=== PATIENT | female | born 1990 | race Hispanic/Latino ===

== ENCOUNTER 2021-02-12 04:18 | Emergency (ER) | payer SELFPAY ==
[2021-02-12] MEDS ORDERED: LORazepam 2 MG/ML VIAL ONE (04:56)
[2021-02-12] MEDS ORDERED: NA CHLORIDE 0.9% 1,000 ML ONE ×2 (04:57→06:57)
[2021-02-12 04:58] LABS: Absolute Lymphocytes (CBC) 3.6 K/uL (0.7-4.9); Basophils % 0.3 % (0-1.3); Hematocrit 37.9 % (36.0-45.0); Lymphocytes % 28.6 % (15.3-44.8); MPV 12.1 fL (7.6-11.3); RBC Red Blood Cell Count 4.12 M/uL (3.86-4.86)
[2021-02-12 05:01] LABS: Protime INR 1.07
[2021-02-12 05:02] LABS: Urine Blood Negative (Negative); Urine Glucose Negative (Negative); Urine Protein Negative (Negative)
[2021-02-12 05:11] LABS: Barbiturates NEGATIVE (NEGATIVE); Benzodiazepines NEGATIVE (NEGATIVE); Cocaine NEGATIVE (NEGATIVE); METHAMPHETAM NEGATIVE (NEGATIVE); Methadone NEGATIVE (NEGATIVE); Opiates NEGATIVE (NEGATIVE); Phencyclidine NEGATIVE (NEGATIVE); THC Cannibis POSITIVE (NEGATIVE)
[2021-02-12 05:16] LABS: ALT/SGPT 36 U/L (12-78); AST/SGOT 13 U/L (15-37); Albumin 3.6 g/dL (3.4-5.0); Alkaline Phosphatase 61 U/L (45-117); BUN Blood Urea Nitrogen 14 mg/dL (7-18); Bicarbonate 23 mmol/L (21-32); Bilirubin Direct < 0.1 mg/dL (0-0.2); Bilirubin Total 0.3 mg/dL (0.2-1.0); Glucose Level 157 mg/dL (74-106); Magnesium 1.7 mg/dL (1.8-2.4); NT PRO-BNP 9 pg/mL (<125); Potassium 3.2 mmol/L (3.5-5.1); Protein, Total 7.1 g/dL (6.4-8.2); Sodium Level 138 mmol/L (136-145); Troponin (Emerg Dept Use Only) < 0.02 ng/mL (0.0-0.045)
[2021-02-12 05:57] LABS: Thyroid Stimulating Hormone 2.24 uIU/mL (0.360-3.740)
[2021-02-12] MEDS ORDERED: POTASSIUM CL SA 10 MEQ TAB PO ONE (06:57)
--- NOTE | 2021-02-12 08:54 | EDPHYS ---
Physician Documentation [facility] Name: Margarita Maciel Age: 30 yrs Sex: Female : 1990 Arrival Date: 02/12/2021 Time: 04:24 Bed 28 Private MD: ED Physician Marcell Ngo HPI: 02/12 04:10 This 30 yrs old Female presents to ER via Unassigned with complaints of Fast Heart Beat.mh7 04:10 The patient presents with a history of heart racing. Context: The symptoms occur at mh7 rest. Onset: The symptoms/episode began/occurred just prior to arrival, today. Duration: The patient or guardian reports a single episode, that is still ongoing, but improving. Modifying factors: The symptoms are aggravated by substance abuse Alcohol, marijuana. The symptoms are alleviated by nothing. Associated signs and symptoms: Pertinent positives: chest pain, Pertinent negatives: anxiety, cough, fever, lightheadedness, nausea, SOB, syncope, near-syncope, unusual stressors, vertigo, vomiting. Severity of symptoms: At their worst the symptoms were moderate today, in the emergency department the symptoms have improved moderately. Patient admits to drinking 5 beers and smoking marijuana.. 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 - Social history:: Smoking status: Patient denies any tobacco usage or history of. Patient uses street drugs, marijuana. ROS: 04:10 Constitutional: Negative for fever, chills, and weight loss, Eyes: Negative for injury, mh7 pain, redness, and discharge, ENT: Negative for injury, pain, and discharge, Neck: Negative for injury, pain, and swelling, Respiratory: Negative for shortness of breath, cough, wheezing, and pleuritic chest pain, Abdomen/GI: Negative for abdominal pain, nausea, vomiting, diarrhea, and constipation, Back: Negative for injury and pain, : Negative for injury, bleeding, discharge, and swelling, MS/Extremity: Negative for injury and deformity, Skin: Negative for injury, rash, and discoloration, Neuro: Negative for headache, weakness, numbness, tingling, and seizure, Psych: Negative for depression, anxiety, suicide ideation, homicidal ideation, and hallucinations, Allergy/Immunology: Negative for hives, rash, and allergies, Endocrine: Negative for neck swelling, polydipsia, polyuria, polyphagia, and marked weight changes, Hematologic/Lymphatic: Negative for swollen nodes, abnormal bleeding, and unusual bruising. Exam: 04:10 Constitutional: This is a well developed, well nourished patient who is awake, alert, mh7 and in no acute distress. Head/Face: Normocephalic, atraumatic. Eyes: Pupils equal round and reactive to light, extra-ocular motions intact. Lids and lashes normal. Conjunctiva and sclera are non-icteric and not injected. Cornea within normal limits. Periorbital areas with no swelling, redness, or edema. Neck: Trachea midline, no thyromegaly or masses palpated, and no cervical lymphadenopathy. Supple, full range of motion without nuchal rigidity, or vertebral point tenderness. No Meningismus. Chest/axilla: Normal chest wall appearance and motion. Nontender with no deformity. No lesions are appreciated. 04:10 Respiratory: Lungs have equal breath sounds bilaterally, clear to auscultation and percussion. No rales, rhonchi or wheezes noted. No increased work of breathing, no retractions or nasal flaring. Abdomen/GI: Soft, non-tender, with normal bowel sounds. No distension or tympany. No guarding or rebound. No evidence of tenderness throughout. Back: No spinal tenderness. No costovertebral tenderness. Full range of motion. Skin: Warm, dry with normal turgor. Normal color with no rashes, no lesions, and no evidence of cellulitis. MS/ Extremity: Pulses equal, no cyanosis. Neurovascular intact. Full, normal range of motion. Neuro: Awake and alert, GCS 15, oriented to person, place, time, and situation. Cranial nerves II-XII grossly intact. Motor strength 5/5 in all extremities. Sensory grossly intact. Cerebellar exam normal. Normal gait. Psych: Awake, alert, with orientation to person, place and time. Behavior, mood, and affect are within normal limits. 04:10 Cardiovascular: Rate: tachycardic, Rhythm: regular, Pulses: no pulse deficits are appreciated, Heart sounds: normal, normal S1and S2, Edema: is not appreciated, JVD: is not appreciated. 04:30 ECG was reviewed by the Attending Physician. cp Vital Signs: 04:30 BP 124 / 65; Pulse 138; Resp 20; Pulse Ox 100% on R/A; Weight 90.72 kg (R); lp1 05:00 BP 115 / 65; Pulse 124; Resp 20; Pulse Ox 98% on R/A; lp1 06:00 BP 103 / 63; Pulse 115; Resp 19; Pulse Ox 100% on R/A; lp1 06:37 Temp 99.1(O); eb 08:28 Pulse 109; Resp 18; Pulse Ox 100% on R/A; iw 08:55 BP 132 / 80; Pulse 100; Resp 18; Pulse Ox 98% on R/A; Pain 2/10; em1 MDM: 05:00 Differential diagnosis: bronchitis, pneumonia UTI, gastroenteritis, cardiac arrythmia, cp illegal drug use, alcohol intoxication. 08:53 Test interpretation: by ED physician or midlevel provider: ECG, plain radiologic cp studies. 08:54 Patient medically screened. 08:54 Data reviewed: vital signs, nurses notes, lab test result(s), EKG, radiologic studies, cp CT scan, plain films, and as a result, I will discharge patient. 08:54 Counseling: I had a detailed discussion with the patient and/or guardian regarding: the cp historical points, exam findings, and any diagnostic results supporting the discharge/admit diagnosis, lab results, radiology results, to return to the emergency department if symptoms worsen or persist or if there are any questions or concerns that arise at home. 08:54 Response to treatment: the patient's symptoms have markedly improved after treatment, cp and as a result, I will discharge patient. Special discussion: Based on the patient's history, exam, and Dx evaluation, there is no indication for emergent intervention or inpatient Tx. It is understood by the patient/guardian that if the Sx's persist or worsen they need to return immediately for re-evaluation. 02/12 04:29 Order name: Basic Metabolic Panel [facility] 02/12 04:29 Order name: CBC with Diff [facility] 02/12 04:29 Order name: LFT's [facility] 02/12 04:29 Order name: Magnesium [facility] 02/12 04:29 Order name: NT PRO-BNP [facility] 02/12 04:29 Order name: PT-INR [facility] 02/12 04:29 Order name: Troponin (emerg Dept Use Only); Complete Time: 05:23 [facility] 02/12 04:29 Order name: UDS; Complete Time: 05:12 [facility] 02/12 04:29 Order name: ETOH Level; Complete Time: 05:16 [facility] 02/12 04:30 Order name: Basic Metabolic Panel; Complete Time: 05:23 EDMS 02/12 04:30 Order name: CBC with Automated Diff; Complete Time: 05:12 EDMS 02/12 04:30 Order name: Liver (Hepatic) Function; Complete Time: 05:23 EDMS 02/12 04:30 Order name: Magnesium; Complete Time: 05:23 EDMS 02/12 04:30 Order name: NT PRO-BNP; Complete Time: 05:23 EDMS 02/12 04:29 Order name: XRAY Chest (1 view) [facility] 02/12 04:30 Order name: Protime (+INR); Complete Time: 05:12 EDMS 02/12 05:01 Order name: Urine --Ancillary (enter results); Complete Time: 06:18 tt3 02/12 05:01 Order name: Urine Dipstick-Ancillary; Complete Time: 05:12 EDMS 02/12 05:23 Order name: TSH [facility] 02/12 05:24 Order name: Thyroid Stimulating Hormone; Complete Time: 06:18 EDMS 02/12 05:24 Order name: CPK [facility] 02/12 05:24 Order name: D-Dimer [facility] 02/12 05:25 Order name: Creatine Phosphokinase; Complete Time: 06:18 EDMS 02/12 05:25 Order name: D-Dimer; Complete Time: 06:57 EDMS 02/12 04:29 Order name: EKG; Complete Time: 04:31 [facility] 02/12 04:29 Order name: Cardiac monitoring; Complete Time: 04:54 [facility] 02/12 04:29 Order name: EKG - Nurse/Tech; Complete Time: 04:54 7 02/12 04:29 Order name: IV Saline Lock; Complete Time: 04:54 [facility] 02/12 04:29 Order name: Labs collected and sent; Complete Time: 04:54 [facility] 02/12 04:29 Order name: O2 Per Protocol; Complete Time: 04:54 7 02/12 04:29 Order name: O2 Sat Monitoring; Complete Time: 04:54 7 02/12 04:29 Order name: Urine Dipstick-Ancillary (obtain specimen); Complete Time: 05:00 7 02/12 04:29 Order name: Urine Test (obtain specimen); Complete Time: 05:00 7 EC:30 Rate is 128 beats/min. Rhythm is regular. NV interval is normal. QRS interval is cp normal. QT interval is normal. Interpreted by me. Reviewed by me. Administered Medications: 04:52 Drug: NS 0.9% 1000 ml Route: IV; Rate: 1000 ml; Site: right antecubital; lp1 06:42 Follow up: IV Status: Completed infusion; IV Intake: 1000ml lp1 04:52 Drug: Ativan (LORazepam) 1 mg Route: IVP; Site: right antecubital; lp1 06:42 Follow up: Response: No adverse reaction; Anxiety decreased lp1 06:38 Drug: NS 0.9% 1000 ml Route: IV; Rate: 1000 ml; Site: right antecubital; ms4 06:39 Drug: Potassium Chloride 40 mEq Route: PO; ms4 09:38 Drug: Magnesium Oxide 400 mg Route: PO; iw Disposition: 02/13 07:40 Co-signature as Attending Physician, Marcell Ngo MD I agree with the assessment and cortney plan of care. Disposition Summary: 02/12/21 08:54 Discharge Ordered Location: Home cp Problem: new cp Symptoms: have improved cp Condition: Stable cp Diagnosis - Chest pain, unspecified cp Followup: cp - With: Private Physician - When: 1 - 2 days - Reason: Recheck today's complaints Discharge Instructions: - Discharge Summary Sheet cp - Nonspecific Chest Pain, Adult cp - Aspirin and Your Heart cp Forms: - Medication Reconciliation Form cp - Thank You Letter cp - Antibiotic Education cp - Prescription Opioid Use cp Prescriptions: - Ibuprofen 800 mg Oral Tablet - take 1 tablet by ORAL route every 8 hours As needed take with food; 30 tablet; cp Refills: 0, Product Selection Permitted Signatures: Dispatcher [employer] Marcell Santos MD MD cha Williams, Irene RN ALLYSON iw Tory Avery RN RN lp1 Robert Sanchez FNP-C FNP-Cla1 Marcell Watkins PA PA cp Reji Davidson MD MD mh7 Alyce Clayton RN RN ms4 Corrections: (The following items were deleted from the chart) 02/12 18:54 08:53 Data reviewed: vital signs, nurses notes, lab test result(s), EKG, radiologic cp studies, CT scan, plain films, and as a result, I will discharge patient, cp
--- NOTE | 2021-02-12 08:54 | ER ---
Nurse's Notes [facility] Name: Margarita Maciel Age: 30 yrs Sex: Female : 1990 Arrival Date: 02/12/2021 Time: 04:24 Bed 28 Private MD: Diagnosis: Chest pain, unspecified Presentation: 02/12 04:30 Chief complaint: EMS states: Called for patient with chest pain and palpitations, lp1 reports + ETOH and marijuana tonight; Per EMS, patient with HR in 160's; given x2 Nitro sprays, x4 ASA PO. 04:30 Coronavirus screen: Client denies travel out of the [place] in the last 14 days. At this lp1 time, the client does not indicate any symptoms associated with coronavirus-19. Ebola Screen: No symptoms or risks identified at this time. Risk Assessment: Do you want to hurt yourself or someone else? Patient reports no desire to harm self or others. Onset of symptoms was February 12, 2021. 04:30 Method Of Arrival: EMS: [facility] lp1 04:30 Acuity: GILDARDO 3 lp1 04:30 Care prior to arrival: IV initiated. 20 GA, in the right antecubital area. lp1 04:30 Initial Sepsis Screen: Does the patient meet any 2 criteria? HR > 90 bpm. Does the lp1 patient have a suspected source of infection? No. Patient's initial sepsis screen is negative. LCPC: 04:54 LMP N/A - Irregular menses lp1 Historical: - Allergies: 04:51 No Known Allergies; lp1 - Home Meds: 04:51 None [Active]; lp1 - PMHx: 04:51 None; lp1 - Immunization history:: Adult Immunizations up to date. - Social history:: Smoking status: Patient denies any tobacco usage or history of. Patient uses street drugs, marijuana. Screenin:51 Abuse screen: Denies threats or abuse. Denies injuries from another. Nutritional lp1 screening: No deficits noted. Tuberculosis screening: No symptoms or risk factors identified. Fall Risk None identified. Assessment: 04:45 General: Appears in no apparent distress. Behavior is quiet. Pain: Complains of pain in lp1 chest Pain currently is 4 out of 10 on a pain scale. Quality of pain is described as aching. Neuro: Level of Consciousness is awake, alert, obeys commands, Oriented to person, place, time, situation. Cardiovascular: Reports chest pain, palpitations, Patient's skin is warm and dry. Respiratory: Respiratory effort is even, unlabored. GI: No signs and/or symptoms were reported involving the gastrointestinal system. : No signs and/or symptoms were reported regarding the genitourinary system. EENT: No signs and/or symptoms were reported regarding the EENT system. Derm: Skin is intact, Skin is dry, Skin is normal. Musculoskeletal: No deficits noted. 04:52 Reassessment: Verbal order by Dr. Davidson for NS 1 L bolus IV now, Ativan 1mg IV now. lp1 06:15 Reassessment: Patient appears in no apparent distress at this time. Ambulated to lp1 bathroom Patient states feeling better. Vital Signs: 04:30 BP 124 / 65; Pulse 138; Resp 20; Pulse Ox 100% on R/A; Weight 90.72 kg (R); lp1 05:00 BP 115 / 65; Pulse 124; Resp 20; Pulse Ox 98% on R/A; lp1 06:00 BP 103 / 63; Pulse 115; Resp 19; Pulse Ox 100% on R/A; lp1 06:37 Temp 99.1(O); eb 08:28 Pulse 109; Resp 18; Pulse Ox 100% on R/A; iw 08:55 BP 132 / 80; Pulse 100; Resp 18; Pulse Ox 98% on R/A; Pain 2/10; em1 ED Course: 04:24 Patient arrived in ED. bp1 04:29 Reji Davidson MD is Attending Physician. mh7 04:49 Tory Avery, ALLYSON is Primary Nurse. lp1 04:51 Triage completed. lp1 04:51 Arm band placed on right wrist. lp1 04:54 Patient has correct armband on for positive identification. Bed in low position. Call lp1 light in reach. Side rails up X2. quality assurance monitor chassis on. Pulse ox on. NIBP on. 04:54 Maintain EMS IV. Dressing intact. Good blood return noted. Site clean \T\ dry. Gauge \T\ lp 1 site: 20g to R AC. 05:10 XRAY Chest (1 view) In Process Unspecified. EDMS 06:42 No provider procedures requiring assistance completed. lp1 07:16 Marcell Watkins PA is PHCP. cp 08:50 Attending Physician role handed off by Reji Davidson MD cha 08:50 Marcell Ngo MD is Attending Physician. [facility] Administered Medications: 04:52 Drug: NS 0.9% 1000 ml Route: IV; Rate: 1000 ml; Site: right antecubital; lp1 06:42 Follow up: IV Status: Completed infusion; IV Intake: 1000ml lp1 04:52 Drug: Ativan (LORazepam) 1 mg Route: IVP; Site: right antecubital; lp1 06:42 Follow up: Response: No adverse reaction; Anxiety decreased lp1 06:38 Drug: NS 0.9% 1000 ml Route: IV; Rate: 1000 ml; Site: right antecubital; ms4 06:39 Drug: Potassium Chloride 40 mEq Route: PO; ms4 09:38 Drug: Magnesium Oxide 400 mg Route: PO; iw Intake: 06:42 IV: 1000ml; Total: 1000ml. lp1 Outcome: 08:54 Discharge ordered by . cp 09:59 Patient left the ED. iw Signatures: Dispatcher [employer] EDMS Marcell Ngo MD MD cha Williams, Irene, RN RN iw Froylan Fisher 1 Tory Avery RN RN 1 Marcell Watkins PA PA cp Botello, Elizabeth eb [place], [facility] Reji Davidson MD MD 7 Alyce Clayton RN RN ms4
[2021-02-12] MEDS ORDERED: MAGNESIUM OXIDE 400 MG TAB ONE (09:56)
[2021-02-12 10:08] VITALS: TEMP 99.1
[2021-02-12 10:10] VITALS: BP 132/80; O2SAT 98
--- NOTE | 2021-02-13 22:39 | RAD REPORT ---
EXAM DESCRIPTION: RAD - Chest Single View - 02/12/2021 5:09 am CLINICAL HISTORY: 10 years Female, CHEST PAIN COMPARISON: None FINDINGS: No focal lung consolidation. No pleural effusion. No pneumothorax. Cardiac and mediastinal silhouette is unremarkable. No acute osseous abnormality. Soft tissues are unremarkable. IMPRESSION: No acute findings. No focal lung consolidation. Electronically signed by: Leo Obando DO 02/12/2021 5:31 AM CDT Due to temporary technical issues with the PACS/Fluency reporting system, reports are being signed by the in house radiologist without review as a courtesy to ensure prompt reporting. The interpreting r adiologist is fully responsible for the content of the report.
== END 2021-02-12 09:59 | disposition home or self-care (01) ==
LOC: ER 04:18
DX: R07.9 Chest pain, unspecified (principal)
CPT/HCPCS: 36415; 71045; 80048; 80076; 80307; 80320; 81003; 81025; 82550; 83735; 83880; 84443; 84484; 85025; 85379; 85610; 93005; 96361; 96374; 99284; J7030